=== PATIENT | female | born 1970 | race Caucasian/White ===

== ENCOUNTER → 2017-08-12 15:30 | Outpatient (CLI) | payer MEDICAID, SELFPAY ==
[2017-08-12 19:10] LABS: Basophils # 0.1 K/mm3 (0-0.2); Basophils % 0.6 % (0.1-2.0); Eosinophils # 0.1 K/mm3 (0.0-0.4); Eosinophils % 1.2 % (0.1-12.0); Hemoglobin 16.1 g/dL (12.2-16.2); Lymphocytes # 1.3 K/mm3 (0.7-4.5); Lymphocytes % 14.3 K/mm3 (10-50); Mean Corpuscular HGB Conc 32.8 g/dL (31.8-35.4); Mean Corpuscular Hemoglobin 32.6 pg (27.0-31.2); Mean Corpuscular Volume 99.3 fl (81-99); Mean Platelet Volume 8.9 fl (7.4-10.4); Monocytes # 0.5 K/mm3 (0.1-1.0); Monocytes % 5.2 % (1.7-9.3); Neutrophils # 7.2 K/mm3 (1.8-7.8); Neutrophils % 78.7 % (37.0-80.0); Platelet Count 236 K/mm3 (142-424); Red Blood Count 4.93 M/mm3 (4.20-5.40); Red Cell Distribution Width 12.7 % (11.5-17.5); White Blood Count 9.2 K/mm3 (4.8-10.8)
[2017-08-12 19:50] LABS: Alanine Aminotransferase 18 U/L (12-78); Albumin/Globulin Ratio 1.1 (1.1-1.8); Alkaline Phosphatase 95 U/L (46-116); Anion Gap 10.9 mEq/L (5-15); Aspartate Amino Transferase 16 U/L (15-37); Bilirubin,Total 0.4 mg/dL (0.2-1.0); Blood Urea Nitrogen 12 mg/dL (7-18); Calcium 9.6 mg/dL (8.5-10.1); Carbon Dioxide 34 mmol/L (21.0-32.0); Chloride 101 mmol/L (98-107); Estimated Glomerular Filt Rate 76 ml/min (>60); Free T4 (Free Thyroxine) 1.09 ng/dl (0.76-1.46); GFR (African American) 92 ML/MIN (>60); Globulin 3.8 gm/dl (1.3-3.2); Glucose 78 mg/dL (74-106); Potassium 3.9 mmoL/L (3.5-5.1); Sodium 142 mmol/L (136-145); Thyroid Stimulating Hormone 0.32 uIU/ml (0.358-3.740); Total Protein,Serum 7.8 gm/dL (6.4-8.2)
[2017-08-14 05:12] LABS: Hep A Ab, IgM Negative (Negative); Hepatitis B Core Antibody IgM Negative (Negative); Hepatitis B Surface Antigen Negative (Negative)
[2017-08-14 11:39] LABS: Hepatitis C Antibody >11.0 s/co ratio (0.0-0.9)
== END ==
PROVIDERS: Visit Provider Emergency Medicine
DX: R53.83 Other fatigue (principal)
CPT/HCPCS: 80053; 80074; 84439; 84443; 85025; 87522

== ENCOUNTER → 2018-06-08 12:50 | Outpatient (CLI) | payer MEDICAID, SELFPAY ==
[2018-06-08 12:56] LABS: Microscopic, Urine URINE MICROSCOPIC (MICROSCOPIC)
[2018-06-08 13:12] LABS: Appearance,Urine CLOUDY (Clear); Bilirubin,Urine Negative (Negative); Blood, Urine 2+ (Negative); Color,Urine YELLOW (Yellow); Glucose,Urine (UA) Negative (Negative); Ketones,Urine Negative (Negative); Leukocyte Esterase,Urine Negative (Negative); Nitrate,Urine Negative (Negative); PH,Urine 5.5 (5.0-8.5); Protein,Urine Negative (Negative); Specific Gravity, Urine >= 1.030 (1.005-1.030); Urobilinogen,Urine 0.2 EU/dl (0.2)
[2018-06-08 13:27] LABS: Bacteria,Urine Trace /lpf; RBC,Urine Occasional #/hpf (0-3)
[2018-06-08 14:08] LABS: Basophils # 0.1 K/mm3 (0-0.2); Basophils % 1.6 % (0.1-2.0); Eosinophils # 0.5 K/mm3 (0.0-0.4); Eosinophils % 8.7 % (0.1-12.0); Hematocrit 43.5 % (37.0-47.0); Lymphocytes # 1.6 K/mm3 (0.7-4.5); Lymphocytes % 31.6 % (10-50); Mean Corpuscular HGB Conc 32.2 g/dL (31.8-35.4); Mean Corpuscular Hemoglobin 30.9 pg (27.0-31.2); Mean Corpuscular Volume 95.7 fl (81-99); Monocytes # 0.2 K/mm3 (0.1-1.0); Monocytes % 4.3 % (1.7-9.3); Neutrophils # 2.8 K/mm3 (1.8-7.8); Neutrophils % 53.7 % (37.0-80.0); Platelet Count 203 K/mm3 (142-424); Red Blood Count 4.55 M/mm3 (4.20-5.40); White Blood Count 5.2 K/mm3 (4.8-10.8)
[2018-06-08 15:14] LABS: Alanine Aminotransferase 24 U/L (12-78); Albumin Level 3.4 gm/dL (3.4-5.0); Albumin/Globulin Ratio 0.9 (1.1-1.8); Alkaline Phosphatase 103 U/L (46-116); Anion Gap 14.7 mEq/L (5-15); Aspartate Amino Transferase 24 U/L (15-37); Bilirubin,Total 0.2 mg/dL (0.2-1.0); Blood Urea Nitrogen 9 mg/dL (7-18); Carbon Dioxide 31 mmol/L (21.0-32.0); Chloride 103 mmol/L (98-107); Chol/HDL Ratio 6.2 (1-3.5); Cholesterol 222 mg/dL (140-200); Creatinine,Serum 0.87 mg/dL (0.55-1.02); Estimated Glomerular Filt Rate 69 ml/min (>60); GFR (African American) 84 ML/MIN (>60); Globulin 3.7 gm/dl (1.3-3.2); Glucose 121 mg/dL (74-106); HDL Cholesterol 36 mg/dL (29-89); Potassium 3.7 mmoL/L (3.5-5.1); Sodium 145 mmol/L (136-145); Total Protein,Serum 7.1 gm/dL (6.4-8.2)
[2018-06-08 15:23] LABS: Ethyl Alcohol 0 mg/dL (0-99); Triglycerides 481 mg/dL (30-200)
[2018-06-09 09:32] LABS: HIV Screen 4th Generation wRfx Non Reactive (Non Reactive); Hep B Surface Ab, Qual Reactive (.); Hepatitis C Antibody >11.0 s/co ratio (0.0-0.9); Rapid Plasma Reagin Ab Titer Non Reactive (NonRea<1:1)
== END ==
PROVIDERS: Visit Provider Obstetrics & Gynecology
DX: F11.20 Opioid dependence, uncomplicated (principal)
CPT/HCPCS: 36415; 80053; 80061; 81001; 85025; 86592; 86703; 86706; 87086; 87380; G0432

== ENCOUNTER → 2018-06-29 14:42 | Outpatient (CLI) | payer MEDICAID, SELFPAY ==
[2018-06-29 15:28] LABS: Amphetamine/Metha Screen,Urine Negative ng/mL (<1000); Barbiturates Screen,Urine Negative ng/mL (<200); Benzodiazepines Screen,Urine Positive ng/mL (<200); Cannabinoid Screen,Urine Negative ng/mL (<50); Cocaine Screen,Urine Negative ng/mL (<300); Methadone Screen,Urine Negative ng/mL (<300); Opiate Screen,Urine Positive ng/mL (<300); Phencyclidine Screen,Urine Negative ng/mL (<25)
[2018-07-06 22:08] LABS: Codeine Negative (Cutoff=100); Hydrocodone Negative (Cutoff=100); Hydromorphone Negative (Cutoff=100); Morphine Positive (.)
[2018-07-07 07:46] LABS: Morphine Confirm 1409 ng/mL (Cutoff=100); Opiates Positive (.)
== END ==
PROVIDERS: Visit Provider Nurse Practitioner Family
DX: Z79.899 Other long term (current) drug therapy (principal)
CPT/HCPCS: 80305; 80361; G0480

== ENCOUNTER 2019-09-27 17:13 | Emergency (ER) | payer OTHER, SELFPAY ==
[2019-09-27 17:14] VITALS: BP 139/98; PULSE 78; RESP 19; TEMP 36.7; O2SAT 99; BMI 42.8
--- NOTE | 2019-09-27 17:29 | HMH.EDUTC ---
[facility] [place] Impression: Migraine Qualifiers: Migraine type: unspecified Status migrainosus presence: without status migrainosus Intractability: not intractable Qualified Code(s): G43.909 - Migraine, unspecified, not intractable, without status migrainosus Disposition: Home, Self-Care Condition on Discharge: Good Instructions: Migraine -- Adult, DI for Migraine Additional Instructions: Go home lay down and try to sleep off remainder of migraine headache *If you continue to have headaches make sure to follow up with Family doctor for further evaluation and treatment Return if needed Straight to ER if any life threatening symptoms Referrals: Amanda Hebert APRN [Primary Care Provider] - Time of Disposition: 17:49 Medical Decision Making - Italo Inquiry Pt receiving controlled substance: No Italo was queried for this patient: No Vital Signs: 09/27/19 17:14 Temperature 98.1 F Temperature Source Oral Pulse Rate [Radial] 78 Respiratory Rate 19 Blood Pressure [Right Arm] 139/98 H Blood Pressure Mean [Right Arm] 111 Blood Pressure Source [Right Arm] Automatic Cuff Blood Pressure Position [Right Arm] Sitting 02 Sat by Pulse Oximetry 99 Oxygen Delivery Method Room Air Orders (Tests/Meds): ED MEDICATIONS Discontinued Medications Generic Name Dose Route Start Last Admin Trade Name Freq PRN Reason Stop Dose Admin Ketorolac Tromethamine 60 mg 09/27/19 17:33 09/27/19 17:37 Toradol 60mg/2ml Vial IM 09/27/19 17:34 60 mg ONCE ONE Administration Ondansetron HCl 4 mg 09/27/19 17:33 09/27/19 17:38 Zofran 4mg Odt SL 09/27/19 17:34 4 mg ONCE ONE Administration [facility] [place] - General Stated complaint: ROLLINS Time Seen by Provider: 09/27/19 17:29 Mode of Arrival: Ambulatory Source of Information: Patient Limitations: No Limitations Description of Symptoms (Recalled from Triage Doc. by RN): migraine, vomiting x 3 days HEENT Symptoms (Recalled from RN notes): Yes Resp Symptoms (Recalled from RN notes): No Skin Symptoms (Recalled from RN notes): No MS Symptoms (Recalled from RN notes): Yes Functional Status (Recalled from RN notes): wnl - History of Present Illness Provider Complaint: Patient state that she has a history of migraine headaches States that she has had a migraine for about 3 days States that she was going to go see family doctor but they told her to come to [facility] for Toradol injection for migraine States that this headache is like ones that she has had before and Toradol helped - Related Data Home Medications Medication Instructions Recorded Confirmed Buprenorphine HCl/Naloxone HCl 2.5 each SL DAILY 01/23/19 01/23/19 [Suboxone 8 mg-2 mg Sl Film] Trazodone HCl 100 mg PO DAILY 06/21/19 09/27/19 buprenorphine 8 mg-naloxone 2 mg 1 tab SUBLINGUAL DAILY 09/27/19 09/27/19 sublingual tablet duloxetine 30 mg capsule,delayed 30 mg PO DAILY 09/27/19 09/27/19 release sprinkle duloxetine 60 mg capsule,delayed 60 mg PO DAILY 09/27/19 09/27/19 release sprinkle quetiapine 50 mg tablet 50 mg PO BID tab 09/27/19 09/27/19 Previous Rx's Medication Instructions Recorded buspirone 5 mg tablet 5 mg PO BID 30 Days #60 tab 01/31/19 amlodipine 5 mg tablet 5 mg PO DAILY #90 tab 03/14/19 risperidone 1 mg tablet 1 mg PO DAILY #90 tab 03/14/19 Allergies Allergy/AdvReac Type Severity Reaction Status Date / Time codeine [CODEINE] Allergy Unknown SHORTNESS Verified 09/27/19 10:20 OF BREATH Penicillins [PENICILLINS] Allergy Unknown SHORTNESS Verified 09/27/19 10:20 OF BREATH From CHERRIES (FOOD/DRUG) Allergy Unknown SHORTNESS Uncoded 09/27/19 10:20 OF BREATH - Worker's Comp Is this a Worker's Comp case?: No [facility] History - Hepatitis A Screen Drug use history?: No High risk sexual behaviors?: No History of sexually transmitted infection?: No Currently employed?: No Childcare worker?: No Do you have indoor plumbing?: Yes Do you have electric
[2019-09-27 17:58] VITALS: BP 139/98; PULSE 78; RESP 19; TEMP 36.7; O2SAT 99
== END 2019-09-27 17:59 | disposition home or self-care (01) ==
PROVIDERS: Emergency Provider Nurse Practitioner; PCP Nurse Practitioner Family
DX: G43.909 Migraine, unspecified, not intractable, without status migrainosus (principal); F41.8 Other specified anxiety disorders; F17.210 Nicotine dependence, cigarettes, uncomplicated; Z88.0 Allergy status to penicillin; Z88.5 Allergy status to narcotic agent; F15.11 Other stimulant abuse, in remission
CPT/HCPCS: 96372; 99201

== ENCOUNTER 2020-02-24 12:08 | Emergency (ER) | payer OTHER, SELFPAY ==
[2020-02-24 12:40] VITALS: BP 127/101; PULSE 91; RESP 17; O2SAT 96; BMI 41.3
--- NOTE | 2020-02-24 12:59 | HMH.EDUTC ---
[facility] – [place] Dis[place] Clinical Impression: Gastroenteritis Disposition: Home, Self-Care Condition on Discharge: Good Instructions: DI for Viral Gastroenteritis -- Adult Additional Instructions: Drink plenty of fluids. Take tylenol or ibuprofen for pain or fever. Take the medications as directed. Follow up with your regular doctor. GO TO THE ER FOR ANY WORSENING SYMPTOMS Prescriptions: Ondansetron [Zofran 4mg ODT] 4 mg PO Q8HP PRN #20 tab.rapdis PRN Reason: Nausea Transmission Status: Received by [facility] Referrals: Amanda Hebert APRN [Primary Care Provider] - Forms: Work/School Release Time of Disposition: 13:20 Medical Decision Making - Medical Records Medical records reviewed: No: I reviewed the patient's medical records. - Italo Inquiry Pt receiving controlled substance: No Vital Signs: 02/24/20 12:40 02/24/20 13:38 Temperature 98.1 F Temperature Source Oral Pulse Rate 91 H Pulse Rate [Radial] 91 H Respiratory Rate 17 17 Blood Pressure 127/101 H Blood Pressure [Right Arm] 127/101 H Blood Pressure Mean [Right Arm] 109 Blood Pressure Source Automatic Cuff Blood Pressure Source [Right Arm] Automatic Cuff Blood Pressure Position Sitting Blood Pressure Position [Right Arm] Sitting 02 Sat by Pulse Oximetry 96 Oxygen Delivery Method Room Air Room Air Orders (Tests/Meds): ED MEDICATIONS Discontinued Medications Generic Name Dose Route Start Last Admin Trade Name Freq PRN Reason Stop Dose Admin Promethazine HCl 25 mg 02/24/20 13:05 02/24/20 13:09 Promethazine Hcl 25mg/Ml 1ml Vial IM 02/24/20 13:06 25 mg ONCE ONE Administration [facility] [place] HPI - General Stated complaint: Vomiting, diarrhea Time Seen by Provider: 02/24/20 12:59 Mode of Arrival: Ambulatory Source of Information: Patient Limitations: No Limitations Description of Symptoms (Recalled from Triage Doc. by RN): vomiting, diarrhea, low grade temp HEENT Symptoms (Recalled from RN notes): No Resp Symptoms (Recalled from RN notes): No Skin Symptoms (Recalled from RN notes): No MS Symptoms (Recalled from RN notes): No Functional Status (Recalled from RN notes): wnl - History of Present Illness Provider Complaint: She c/o n/v/d since last night. - Related Data Home Medications Medication Instructions Recorded Confirmed Buprenorphine HCl/Naloxone HCl 2.5 each SL DAILY 01/23/19 01/23/19 [Suboxone 8 mg-2 mg Sl Film] Previous Rx's Medication Instructions Recorded amlodipine 5 mg tablet 5 mg PO DAILY #90 tab 03/14/19 buspirone 5 mg tablet 5 mg PO BID 30 Days #60 tab 12/28/19 cariprazine 1.5 mg capsule 1.5 mg PO DAILY #30 cap 12/28/19 duloxetine 60 mg capsule,delayed 60 mg PO DAILY #30 cap 12/28/19 release hydroxyzine pamoate 25 mg capsule 25 mg PO .COMPLEX PRN #60 cap 12/28/19 vilazodone 20 mg tablet 20 mg PO DAILY 30 Days #30 tab 02/14/20 Ondansetron [Zofran 4mg ODT] 4 mg PO Q8HP PRN #20 tab.rapdis 02/24/20 Allergies Allergy/AdvReac Type Severity Reaction Status Date / Time codeine [CODEINE] Allergy Unknown SHORTNESS Verified 09/27/19 10:20 OF BREATH Penicillins [PENICILLINS] Allergy Unknown SHORTNESS Verified 09/27/19 10:20 OF BREATH From CHERRIES (FOOD/DRUG) Allergy Unknown SHORTNESS Uncoded 09/27/19 10:20 OF BREATH - Worker's Comp Is this a Worker's Comp case?: No [facility] History - Hepatitis A Screen Drug use history?: No High risk sexual behaviors?: No History of sexually transmitted infection?: No Currently employed?: No Childcare worker?: No Do you have indoor plumbing?: Yes Do you have electricity?: Yes Attestation statement:: This patient has been screened for Hepatitis A risk factors. I have reviewed the patient's past medical history: Yes Medical History: Reports:: Anxiety, Depression, Hypertension Other Surgeries: Yes: Amputation: No Fractures: Yes - Social History Smoking Status: Current e
[2020-02-24 13:38] VITALS: BP 127/101; PULSE 91; RESP 17; TEMP 36.7; O2SAT 96
== END 2020-02-24 13:39 | disposition home or self-care (01) ==
PROVIDERS: Emergency Provider Nurse Practitioner Family; PCP Nurse Practitioner Family
DX: K52.9 Noninfective gastroenteritis and colitis, unspecified (principal); F41.8 Other specified anxiety disorders; F17.210 Nicotine dependence, cigarettes, uncomplicated
CPT/HCPCS: 96372; 99201

== ENCOUNTER 2020-07-08 14:29 | Emergency (ER) | payer OTHER, SELFPAY ==
[2020-07-08] VITALS (12 sets, daily range): BP systolic 103–138; BP diastolic 73–98; PULSE 81–90; RESP 12–16; TEMP 36.6; O2SAT 90–100; BMI 44.8
--- NOTE | 2020-07-08 14:18 | ECG_ITS ---
APPROVED REPORT Exam: Resting ECG HR:81 bpm ECG Measurements Heart Rate 81 AXES WA 188 P 73 QRSd 82 QRS 47 QT 416 T 28 QTc 483 Conclusion Normal sinus rhythm Prolonged QT Abnormal ECG Electronically signed by : Brodie Holliday, 07/08/2020 17:32:03
--- NOTE | 2020-07-08 14:30 | HMH.EDGENADL ---
ED Disposition Clinical Impression: Heroin overdose Qualifiers: Encounter type: initial encounter Injury intent: accidental or unintentional Qualified Code(s): T40.1X1A - Poisoning by heroin, accidental (unintentional), initial encounter Disposition: Home, Self-Care Condition on Discharge: Good Instructions: DI for Drug Overdose in Adults Additional Instructions: Do not take any diazepam until tomorrow. Do not take any Suboxone until tomorrow. Do not drink any alcohol today. Return to the emergency department with any worsening of condition. Referrals: Ricki Finney MD [Primary Care Provider] - - Critical Care Critical Care Time: No Attestation: On , the high probability of a clinically significant, sudden or life threatening deterioration of the following system(s) required my full and direct attention, intervention and personal management. The time I documented below is in addition to time spent performing reported procedures but includes the following listed in this critical care notation. Medical Decision Making - Italo Inquiry Pt receiving controlled substance: No Vital Signs: 07/08/20 14:29 07/08/20 14:51 07/08/20 14:57 Temperature 97.8 F Temperature Source Oral Pulse Rate [Apical] 81 85 Respiratory Rate 12 Blood Pressure [Left Arm] 108/79 L Blood Pressure Mean [Left Arm] 88 Blood Pressure Source [Left Arm] Automatic Cuff Automatic Cuff Blood Pressure Position [Left Arm] Sitting Sitting 02 Sat by Pulse Oximetry 91 L 100 96 Oxygen Delivery Method Room Air Nasal Cannula Nasal Cannula Oxygen Flow Rate (LPM) 2 2 07/08/20 15:00 07/08/20 15:30 07/08/20 16:00 Temperature Temperature Source Pulse Rate [Apical] 85 85 90 Respiratory Rate Blood Pressure [Left Arm] 103/80 L 104/79 L 107/73 L Blood Pressure Mean [Left Arm] 87 87 84 Blood Pressure Source [Left Arm] Automatic Cuff Automatic Cuff Automatic Cuff Blood Pressure Position [Left Arm] Sitting Sitting Sitting 02 Sat by Pulse Oximetry 100 96 96 Oxygen Delivery Method Room Air Room Air Nasal Cannula Oxygen Flow Rate (LPM) 07/08/20 16:30 07/08/20 17:37 07/08/20 18:18 Temperature Temperature Source Pulse Rate [Apical] 86 88 89 Respiratory Rate Blood Pressure [Left Arm] 130/91 H 128/98 H 134/77 Blood Pressure Mean [Left Arm] 104 108 96 Blood Pressure Source [Left Arm] Automatic Cuff Automatic Cuff Automatic Cuff Blood Pressure Position [Left Arm] Sitting Sitting Sitting 02 Sat by Pulse Oximetry 90 L 97 94 L Oxygen Delivery Method Room Air Nasal Cannula Room Air Oxygen Flow Rate (LPM) 2 07/08/20 18:47 Temperature Temperature Source Pulse Rate [Apical] 84 Respiratory Rate Blood Pressure [Left Arm] 138/92 H Blood Pressure Mean [Left Arm] 107 Blood Pressure Source [Left Arm] Automatic Cuff Blood Pressure Position [Left Arm] Sitting 02 Sat by Pulse Oximetry 91 L Oxygen Delivery Method Room Air Oxygen Flow Rate (LPM) - Lab Data Lab Results 07/08/20 14:55: WBC 8.3, RBC 4.61, Hgb 14.5, Hct 43.7, MCV 94.8, MCH 31.5 H, MCHC 33.3, RDW 13.4, Plt Count 226, MPV 7.8, Neut % (Auto) 75.5, Lymph % (Auto) 17.5, Charlton % (Auto) 3.6, Eos % (Auto) 2.7, Baso % (Auto) 0.7, Neut # (Auto) 6.2, Lymph # (Auto) 1.5, Charlton # (Auto) 0.3, Eos # (Auto) 0.2, Baso # (Auto) 0.1 07/08/20 14:55: Sodium 144, Potassium 4.7, Chloride 105, Carbon Dioxide 35 H, Anion Gap 8.7, BUN 11, Creatinine 0.90, Estimated Creat Clear 61, Estimated GFR 66, Est GFR ( Amer) 80, Glucose 118 H, Calcium 9.7, Total Bilirubin 0.4, AST 51 H, ALT 55, Alkaline Phosphatase 111, Total Protein 8.1, Albumin 4.4, Globulin 3.7 H, Albumin/Globulin Ratio 1.2, Salicylates < 1.0 L, Acetaminophen < 10 L 07/08/20 14:55: Plasma/Serum Alcohol < 10 07/08/20 17:45: Urine Opiates Screen Negative, Urine Methadone Screen Negative, Ur Barbituates Screen Negative, Ur Phencyclidine Scrn Negative, Ur Amphetamines Screen Negative, U Benzodiazepines Scrn Positive H, Urine Cocaine Screen
--- NOTE | 2020-07-08 14:38 | XR_ITS ---
PROCEDURE: XR CHEST PORTABLE CLINICAL HISTORY: Chest Pain COMPARISON: CR CXR2 CHEST-AP VIEW ONLY from 12/05/[address] ANGIO CHEST from 01/23/2019 CR XR CHEST PORTABLE from 01/23/2019 FINDINGS: The lung zuniga are well expanded and appear clear of infiltrate. There is mild or borderline cardiomegaly however there is no pulmonary congestion and there is no pleural fluid. There monitor lines overlying the chest. There are calcified left hilar nodes. There is a metallic surgical anchor diametaphyseal zone right humerus. IMPRESSION: Borderline cardiomegaly, no acute chest pathology noted Dictated by: Dr. David Borges MD 07/08/2020 19:04 Dr. David Borges MD in [place] 07/08/2020 19:04
--- NOTE | 2020-07-08 14:40 | CT_ITS ---
PROCEDURE: CT CHEST WO CON CLINICAL INDICATION: cpr, chest pain, r/o sternal fx COMPARISON: CT CT ANGIO CHEST from 01/23/2019 TECHNIQUE: Axial images obtained with sagittal and coronal reformats. All CT scans at the facility use one or more dose reduction, viz: automated exposure control, ma/kV adjustment per patient size (including targeted exams where dose is matched to indication, i.e. head), or iterative reconstruction technique. FINDINGS: HEART AND MEDIASTINAL STRUCTURES: There is mild or borderline generalized cardiomegaly with aortic tortuosity.1 there is no pericardial effusion.. LUNGS AND PLEURAL SPACES: No definite pneumonic infiltrate is seen, there is minimal bilateral basilar atelectasis in the posterior gutters. There is no pleural fluid. There is no pneumothorax or pneumomediastinum identified. BONY STRUCTURES: Minor multilevel degenerate changes are seen in the thoracic spine. The sternum appears intact with no evidence of acute fracture. UPPER ABDOMEN: There is a exophytic somewhat lobulated mass arising from the upper pole right kidney not completely evaluated on the limited imaging of the upper abdomen. Recommend the patient be scheduled for either ultrasound of the kidneys and or follow-up CT scan abdomen pelvis with IV contrast for additional evaluation. ADDITIONAL FINDINGS: No other significant abnormalities. IMPRESSION: Borderline cardiomegaly, no definite pneumonic infiltrate seen and no sternal fracture identified Dictated by: Dr. David Borges MD 07/08/2020 19:12 Dr. David Borges MD in [place] 07/08/2020 19:12
--- NOTE | 2020-07-08 14:56 | PC.NURSE ---
pt to CT
[2020-07-08 15:06] LABS: Basophils # 0.1 K/mm3 (0-0.2); Basophils % 0.7 % (0.1-2.0); Eosinophils # 0.2 K/mm3 (0.0-0.4); Eosinophils % 2.7 % (0.1-12.0); Hematocrit 43.7 % (37.0-47.0); Hemoglobin 14.5 g/dL (12.2-16.2); Lymphocytes # 1.5 K/mm3 (0.7-4.5); Lymphocytes % 17.5 % (10-50); Mean Corpuscular HGB Conc 33.3 g/dL (31.8-35.4); Mean Corpuscular Hemoglobin 31.5 pg (27.0-31.2); Mean Corpuscular Volume 94.8 fl (81-99); Mean Platelet Volume 7.8 fl (7.4-10.4); Monocytes # 0.3 K/mm3 (0.1-1.0); Monocytes % 3.6 % (1.7-9.3); Neutrophils # 6.2 K/mm3 (1.8-7.8); Neutrophils % 75.5 % (37.0-80.0); Platelet Count 226 K/mm3 (142-424); Red Blood Count 4.61 M/mm3 (4.20-5.40); Red Cell Distribution Width 13.4 % (11.5-17.5); White Blood Count 8.3 K/mm3 (4.8-10.8)
[2020-07-08 15:11] LABS: Chloride 105 mmol/L (98-107); Sodium 144 mmol/L (136-145)
[2020-07-08 15:12] LABS: Potassium 4.7 mmoL/L (3.5-5.1)
[2020-07-08 15:14] LABS: Alanine Aminotransferase 55 U/L (12-78); Albumin Level 4.4 g/dl (3.5-5.0); Albumin/Globulin Ratio 1.2 (1.1-1.8); Alkaline Phosphatase 111 U/L (38-126); Anion Gap 8.7 mEq/L (5-15); Aspartate Amino Transferase 51 U/L (14-36); Bilirubin,Total 0.4 mg/dl (0.2-1.3); Blood Urea Nitrogen 11 mg/dl (7-17); Calcium 9.7 mg/dl (8.4-10.2); Carbon Dioxide 35 mmol/L (22.0-30.0); Creatinine Clearance Estimated 61 mL/min (50-200); Estimated Glomerular Filt Rate 66 ml/min (>60); GFR (African American) 80 ML/MIN (>60); Globulin 3.7 g/dL (1.3-3.2); Glucose 118 mg/dl (74-100); Total Protein,Serum 8.1 g/dl (6.3-8.2)
[2020-07-08 15:16] LABS: Acetaminophen < 10 ug/ml (10-30); Ethyl Alcohol < 10 mg/dl (0-10); Salicylate < 1.0 mg/dL (2.0-20.0)
--- NOTE | 2020-07-08 16:35 | PC.NURSE ---
pt oxygen levels drops when pt falls asleep, ER MD notified, states to place pt back on 2L per and we will continue to monitor pt for at least a couple of hours.
[2020-07-08 18:03] LABS: Amphetamine/Metha Screen,Urine Negative ng/ml (<1000); Barbiturates Screen,Urine Negative ng/ml (<200)
[2020-07-08 18:04] LABS: Benzodiazepines Screen,Urine Positive ng/ml (<200); Cannabinoid Screen,Urine Negative ng/ml (<50)
[2020-07-08 18:05] LABS: Cocaine Screen,Urine Negative ng/ml (<300)
[2020-07-08 18:06] LABS: Methadone Screen,Urine Negative ng/ml (<300); Opiate Screen,Urine Negative ng/ml (<300)
--- NOTE | 2020-07-08 18:06 | PC.NURSE ---
pt more alert at this time.
[2020-07-08 18:07] LABS: Phencyclidine Screen,Urine Negative ng/ml (<25)
== END 2020-07-08 19:10 | disposition home or self-care (01) ==
PROVIDERS: Emergency Provider Emergency Medicine; PCP Family Medicine
DX: T40.1X1A Poisoning by heroin, accidental (unintentional), initial encounter (principal); F41.8 Other specified anxiety disorders; I10 Essential (primary) hypertension; Z79.899 Other long term (current) drug therapy; F17.210 Nicotine dependence, cigarettes, uncomplicated; Z88.0 Allergy status to penicillin; Z88.5 Allergy status to narcotic agent
CPT/HCPCS: 71045; 71250; 80053; 80305; 80329; 85025; 93005; 96374; 96375; 99284; J2310

== ENCOUNTER 2020-08-18 19:39 | Emergency (ER) | payer OTHER, SELFPAY ==
[2020-08-18 20:04] VITALS: BP 152/102; PULSE 83; RESP 14; TEMP 37; O2SAT 99; BMI 44.6
--- NOTE | 2020-08-18 20:16 | HMH.EDUTC ---
[facility] – [place], [place] Disposition Clinical Impression: Migraine Qualifiers: Migraine type: without aura Status migrainosus presence: without status migrainosus Intractability: not intractable Qualified Code(s): G43.009 - Migraine without aura, not intractable, without status migrainosus Disposition: Home, Self-Care Condition on Discharge: Good Instructions: Migraine -- Adult, DI for Migraine Additional Instructions: if symptoms worsen or do not improve return or be seen in ed follow up with pcp Referrals: Ricki Finney MD [Primary Care Provider] - Time of Disposition: 20:28 Medical Decision Making - Italo Inquiry Pt receiving controlled substance: No Vital Signs: 08/18/20 20:04 Temperature 98.6 F Temperature Source Oral Pulse Rate [Right] 83 Respiratory Rate 14 Blood Pressure [Right Arm] 152/102 H Blood Pressure Mean [Right Arm] 118 Blood Pressure Source [Right Arm] Automatic Cuff Blood Pressure Position [Right Arm] Sitting 02 Sat by Pulse Oximetry 99 Oxygen Delivery Method Room Air [facility] [place], [place] HPI - General Chief complaint: [facility] Stated complaint: migraine,vomiting Time Seen by Provider: 08/18/20 20:16 Mode of Arrival: Ambulatory Source of Information: Patient Limitations: No Limitations Description of Symptoms (Recalled from Triage Doc. by RN): pt states she has had a migraine and N/V for three days. pt states she has had migraines since she was 12, and normally gets torodol and phenergran injections on day three if she can't get rid of them. HEENT Symptoms (Recalled from RN notes): Yes (migraine) Resp Symptoms (Recalled from RN notes): No Skin Symptoms (Recalled from RN notes): No MS Symptoms (Recalled from RN notes): No Functional Status (Recalled from RN notes): na - Related Data Home Medications Medication Instructions Recorded Confirmed Buprenorphine HCl/Naloxone HCl 2.5 each SL DAILY 01/23/19 01/23/19 [Suboxone 8 mg-2 mg Sl Film] Previous Rx's Medication Instructions Recorded amlodipine 5 mg tablet 5 mg PO DAILY #90 tab 03/14/19 Ondansetron [Zofran 4mg ODT] 4 mg PO Q8HP PRN #20 tab.rapdis 02/24/20 propranolol 10 mg tablet 10 mg PO TID PRN #90 tab 07/05/20 buspirone 5 mg tablet 5 mg PO BID #60 tab 07/23/20 cariprazine 3 mg capsule 3 mg PO DAILY #30 cap 07/23/20 desvenlafaxine succinate 50 mg 50 mg PO DAILY #30 tab 07/23/20 tablet,extended release 24 hr duloxetine 30 mg capsule,delayed 30 mg PO DAILY #14 cap 07/23/20 release quetiapine 50 mg tablet 50 mg PO QHS #30 tab 07/23/20 vilazodone 40 mg tablet 40 mg PO DAILY #30 tab 07/23/20 hydroxyzine pamoate 25 mg capsule 25 mg PO TID PRN #90 cap 08/13/20 Allergies Allergy/AdvReac Type Severity Reaction Status Date / Time codeine [CODEINE] Allergy Unknown SHORTNESS Verified 08/18/20 20:03 OF BREATH Penicillins [PENICILLINS] Allergy Unknown SHORTNESS Verified 08/18/20 20:03 OF BREATH From CHERRIES (FOOD/DRUG) Allergy Unknown SHORTNESS Uncoded 09/27/19 10:20 OF BREATH - Worker's Comp Is this a Worker's Comp case?: No [facility] History - Hepatitis A Screen Drug use history?: No High risk sexual behaviors?: No History of sexually transmitted infection?: No Currently employed?: No Childcare worker?: No Do you have indoor plumbing?: Yes Do you have electricity?: Yes Attestation statement:: This patient has been screened for Hepatitis A risk factors. I have reviewed the patient's past medical history: Yes Medical History: Reports:: Anxiety, Depression, Hypertension Other Surgeries: Yes: Amputation: No Fractures: Yes - Social History Smoking Status: Current every day smoker Tobacco Type: cigarettes # Packs/Day (cigarettes): 1 Alcohol Intake: never Substance Use Type: denies use, crack/cocaine, heroin, IV drugs (she has had the hepatitis and HIV testing; all negative) Occupational Status: employed Comment: -see above. -she is currently in a suboxone clinic - Psychiatric History Pschychi
[2020-08-18 20:34] VITALS: BP 149/98; PULSE 87; RESP 16; TEMP 36.6
== END 2020-08-18 20:40 | disposition home or self-care (01) ==
PROVIDERS: Emergency Provider Nurse Practitioner Family; PCP Family Medicine
DX: G43.009 Migraine without aura, not intractable, without status migrainosus (principal); F41.8 Other specified anxiety disorders; F17.210 Nicotine dependence, cigarettes, uncomplicated; Z79.899 Other long term (current) drug therapy
CPT/HCPCS: 96372; 99202; G0463

== ENCOUNTER 2020-08-21 17:16 | Emergency (ER) | payer OTHER, SELFPAY ==
[2020-08-21 17:26] VITALS: BP 163/109; PULSE 87; RESP 16; TEMP 36.2; O2SAT 96; BMI 44.8
--- NOTE | 2020-08-21 17:40 | HMH.EDUTC ---
[facility] [place] Disposition Clinical Impression: Migraine Qualifiers: Migraine type: unspecified Status migrainosus presence: without status migrainosus Intractability: not intractable Qualified Code(s): G43.909 - Migraine, unspecified, not intractable, without status migrainosus Disposition: Home, Self-Care Condition on Discharge: Good Instructions: DI for Migraine Additional Instructions: Drink plenty of fluids. Take the ibuprofen that was prescribed. The promethazine will make you drowsy, so don't drive or operate heavy machinery after taking it. Take the medications as directed. Follow up with your regular doctor. GO TO THE ER FOR ANY WORSENING SYMPTOMS Prescriptions: Ibuprofen [Ibuprofen 800mg Tablet] 800 mg PO Q8HP PRN #30 tab PRN Reason: Moderate Pain Transmission Status: Received by [facility] Promethazine HCl [Phenergan 25mg tab] 25 mg PO Q6H PRN #12 tab PRN Reason: Nausea And Vomiting Transmission Status: Received by [facility] Referrals: Ricki Finney MD [Primary Care Provider] - Time of Disposition: 18:09 Medical Decision Making - Medical Records Medical records reviewed: No: I reviewed the patient's medical records. - Italo Inquiry Pt receiving controlled substance: No Vital Signs: 08/21/20 17:26 08/21/20 17:58 Temperature 97.2 F L 98 F Temperature Source Tympanic Pulse Rate 85 Pulse Rate [Right] 87 Respiratory Rate 16 16 Blood Pressure 152/99 H Blood Pressure [Right Arm] 163/109 H Blood Pressure Mean [Right Arm] 127 02 Sat by Pulse Oximetry 96 Orders (Tests/Meds): ED MEDICATIONS Discontinued Medications Generic Name Dose Route Start Last Admin Trade Name Freq PRN Reason Stop Dose Admin Ketorolac Tromethamine 60 mg 08/21/20 17:44 08/21/20 17:54 Ketorolac 60mg/2ml Vial IM 08/21/20 17:45 60 mg ONCE ONE Administration Promethazine HCl 12.5 mg 08/21/20 17:45 08/21/20 17:53 Promethazine Hcl 25mg/Ml 1ml Vial IM 08/21/20 17:46 12.5 mg ONCE ONE Administration [facility] [place] HPI - General Stated complaint: migraine Time Seen by Provider: 08/21/20 17:40 Mode of Arrival: Ambulatory Source of Information: Patient Limitations: No Limitations Description of Symptoms (Recalled from Triage Doc. by RN): pt states she has had a migraine for two days. she has been having N/V and is seeing spots. pain is at the top of her forehead and its a 9/10. HEENT Symptoms (Recalled from RN notes): Yes (migraine with visual disturbances) Resp Symptoms (Recalled from RN notes): No Skin Symptoms (Recalled from RN notes): No MS Symptoms (Recalled from RN notes): No Functional Status (Recalled from RN notes): na - History of Present Illness Provider Complaint: She c/o migraine headache since yesterday evening. She states that she sometimes has migraines and she has to come in here to get a steroid shot. - Related Data Home Medications Medication Instructions Recorded Confirmed Buprenorphine HCl/Naloxone HCl 2.5 each SL DAILY 01/23/19 01/23/19 [Suboxone 8 mg-2 mg Sl Film] Previous Rx's Medication Instructions Recorded amlodipine 5 mg tablet 5 mg PO DAILY #90 tab 03/14/19 Ondansetron [Zofran 4mg ODT] 4 mg PO Q8HP PRN #20 tab.rapdis 02/24/20 propranolol 10 mg tablet 10 mg PO TID PRN #90 tab 07/05/20 buspirone 5 mg tablet 5 mg PO BID #60 tab 07/23/20 cariprazine 3 mg capsule 3 mg PO DAILY #30 cap 07/23/20 desvenlafaxine succinate 50 mg 50 mg PO DAILY #30 tab 07/23/20 tablet,extended release 24 hr duloxetine 30 mg capsule,delayed 30 mg PO DAILY #14 cap 07/23/20 release quetiapine 50 mg tablet 50 mg PO QHS #30 tab 07/23/20 vilazodone 40 mg tablet 40 mg PO DAILY #30 tab 07/23/20 hydroxyzine pamoate 25 mg capsule 25 mg PO TID PRN #90 cap 08/13/20 Ibuprofen [Ibuprofen 800mg 800 mg PO Q8HP PRN #30 tab 08/21/20 Tablet] Promethazine HCl [Phenergan 25mg 25 mg PO Q6H PRN #12 tab 08/21/20 tab] A
[2020-08-21 17:58] VITALS: BP 152/99; PULSE 85; RESP 16; TEMP 36.6
== END 2020-08-21 18:30 | disposition home or self-care (01) ==
PROVIDERS: Emergency Provider Nurse Practitioner Family; PCP Family Medicine
DX: G43.909 Migraine, unspecified, not intractable, without status migrainosus (principal); F41.8 Other specified anxiety disorders; F17.210 Nicotine dependence, cigarettes, uncomplicated; Z79.899 Other long term (current) drug therapy; Z88.0 Allergy status to penicillin; Z88.5 Allergy status to narcotic agent
CPT/HCPCS: 96372; 99202; G0463

== ENCOUNTER 2021-02-11 13:07 | Emergency (ER) | payer OTHER, SELFPAY ==
[2021-02-11 13:40] VITALS: BP 135/89; PULSE 98; RESP 18; TEMP 36.8; O2SAT 95; BMI 43.9
--- NOTE | 2021-02-11 14:20 | HMH.EDUTC ---
[facility] [place] Clinical Impression: Migraine Qualifiers: Migraine type: unspecified Status migrainosus presence: without status migrainosus Intractability: not intractable Qualified Code(s): G43.909 - Migraine, unspecified, not intractable, without status migrainosus Disposition: Home, Self-Care Condition on Discharge: Good Instructions: Migraine -- Adult, DI for Migraine Additional Instructions: Go home lay down and sleep off remainder of Migraine Headache Follow up with your Family Doctor as scheduled tomorrow Return if needed Straight to ER if any life threatening symptoms Referrals: Ricki Finney MD [Primary Care Provider] - As needed Time of Disposition: 14:33 Medical Decision Making - Italo Inquiry Pt receiving controlled substance: No Italo was queried for this patient: No Vital Signs: 02/11/21 13:40 02/11/21 14:39 Temperature 98.2 F 98.2 F Temperature Source Oral Pulse Rate 98 H Pulse Rate [Right Brachial] 98 H Respiratory Rate 18 18 Blood Pressure 135/89 Blood Pressure [Right Arm] 135/89 Blood Pressure Mean [Right Arm] 104 Blood Pressure Source [Right Arm] Automatic Cuff Blood Pressure Position [Right Arm] Sitting 02 Sat by Pulse Oximetry 95 Oxygen Delivery Method Room Air Orders (Tests/Meds): ED MEDICATIONS Discontinued Medications Generic Name Dose Route Start Last Admin Trade Name Freq PRN Reason Stop Dose Admin Ketorolac Tromethamine 30 mg 02/11/21 14:31 02/11/21 14:38 Ketorolac 60mg/2ml Vial IM 02/11/21 14:32 30 mg ONCE ONE Administration Promethazine HCl 12.5 mg 02/11/21 14:31 02/11/21 14:38 Promethazine Hcl 25mg/Ml 1ml Vial IM 02/11/21 14:32 12.5 mg ONCE ONE Administration Sodium Chloride 25 ml 02/11/21 14:31 02/11/21 14:39 Sodium Chloride 0.9% 25ml Bag IV 02/11/21 14:32 Not Given ONCE ONE Medical Decision Narrative: Patient reports that she has taken both Toradol and Phenergan in the past without complications or reactions [facility] [place] - General Stated complaint: Body aches, sore throat, headace Time Seen by Provider: 02/11/21 14:20 Mode of Arrival: Ambulatory Source of Information: Patient Limitations: No Limitations Description of Symptoms (Recalled from Triage Doc. by RN): PATIENT C/O EAR ACHE, HEADACHE, AND VOMITING. EXPOSED TO COVID 3 DAYS AGO HEENT Symptoms (Recalled from RN notes): No Resp Symptoms (Recalled from RN notes): No Skin Symptoms (Recalled from RN notes): No MS Symptoms (Recalled from RN notes): No Functional Status (Recalled from RN notes): WNL - History of Present Illness Provider Complaint: Patient states that she has a history of Migraine headaches States that she has been having a migraine for 3 days States that she called her PCP and they told her to come to the [facility] to get injections due to vomiting due to the migraine States that this is like other migraines she has had in the past - Related Data Home Medications Medication Instructions Recorded Confirmed Buprenorphine HCl/Naloxone HCl 2.5 each SL DAILY 01/23/19 01/23/19 [Suboxone 8 mg-2 mg Sl Film] Previous Rx's Medication Instructions Recorded amlodipine 5 mg tablet 5 mg PO DAILY #90 tab 03/14/19 Ondansetron [Zofran 4mg ODT] 4 mg PO Q8HP PRN #20 tab.rapdis 02/24/20 propranolol 10 mg tablet 10 mg PO TID PRN #90 tab 07/05/20 Ibuprofen [Ibuprofen 800mg 800 mg PO Q8HP PRN #30 tab 08/21/20 Tablet] Promethazine HCl [Phenergan 25mg 25 mg PO Q6H PRN #12 tab 08/21/20 tab] buspirone 5 mg tablet 5 mg PO BID #60 tab 01/24/21 cariprazine 4.5 mg capsule 4.5 mg PO DAILY #30 cap 01/24/21 desvenlafaxine succinate 50 mg 50 mg PO DAILY #30 tab 01/24/21 tablet,extended release 24 hr hydroxyzine pamoate 25 mg capsule 25 mg PO TID PRN #90 cap 01/24/21 quetiapine 100 mg tablet 100 mg PO QHS #30 tab 01/24/21 vilazodone 40 mg tablet 40 mg PO DAILY #30 tab 01/24/21 Allergies Allergy/AdvReac Type Severity Reaction Status Date / T
[2021-02-11 14:39] VITALS: BP 135/89; PULSE 98; RESP 18; TEMP 36.8; O2SAT 95
== END 2021-02-11 14:45 | disposition home or self-care (01) ==
PROVIDERS: Emergency Provider Nurse Practitioner; PCP Family Medicine
DX: G43.909 Migraine, unspecified, not intractable, without status migrainosus (principal); F41.8 Other specified anxiety disorders; F17.210 Nicotine dependence, cigarettes, uncomplicated; Z88.0 Allergy status to penicillin; Z88.5 Allergy status to narcotic agent; Z79.899 Other long term (current) drug therapy; Z20.822 Contact with and (suspected) exposure to COVID-19
CPT/HCPCS: 96372; 99202; C9803; G0463; U0003; U0005

== ENCOUNTER 2021-06-18 13:30 | Emergency (ER) | payer OTHER, SELFPAY ==
[2021-06-18 14:20] VITALS: BP 141/90; PULSE 82; RESP 18; TEMP 37; O2SAT 98; BMI 44.1
--- NOTE | 2021-06-18 14:48 | HMH.EDUTC ---
[facility] [place] Disposition Clinical Impression: Migraine Qualifiers: Migraine type: unspecified Status migrainosus presence: without status migrainosus Intractability: not intractable Qualified Code(s): G43.909 - Migraine, unspecified, not intractable, without status migrainosus Disposition: Home, Self-Care Condition on Discharge: Good Instructions: Migraine -- Adult, DI for Migraine Additional Instructions: Go home lay down and try to sleep off remainder of migraine headache Follow up with your Family Doctor if no improvement or any worsening of symptoms Straight to ER if worse headache of your life Referrals: Amanda Hebert APRN [Primary Care Provider] - Medical Decision Making - Italo Inquiry Pt receiving controlled substance: No Italo was queried for this patient: No Vital Signs: 06/18/21 14:20 06/18/21 15:08 Temperature 98.6 F 98.6 F Temperature Source Oral Pulse Rate 82 Pulse Rate [Right Brachial] 82 Respiratory Rate 18 18 Blood Pressure 141/90 H Blood Pressure [Right Arm] 141/90 H Blood Pressure Mean [Right Arm] 107 Blood Pressure Source [Right Arm] Automatic Cuff Blood Pressure Position [Right Arm] Sitting 02 Sat by Pulse Oximetry 98 Oxygen Delivery Method Room Air Orders (Tests/Meds): ED MEDICATIONS Discontinued Medications Generic Name Dose Route Start Last Admin Trade Name Freq PRN Reason Stop Dose Admin Ketorolac Tromethamine 60 mg 06/18/21 14:54 06/18/21 15:08 Ketorolac 60mg/2ml Vial IM 06/18/21 14:55 60 mg ONCE ONE Administration Promethazine HCl 12.5 mg 06/18/21 14:54 06/18/21 15:08 Promethazine Hcl 25mg/Ml 1ml Vial IM 06/18/21 14:55 12.5 mg ONCE ONE Administration Sodium Chloride 25 ml 06/18/21 14:54 06/18/21 15:08 Sodium Chloride 0.9% 25ml Bag IV 06/18/21 14:55 Not Given ONCE ONE Medical Decision Narrative: medication discussed with pharmacy Patient states that headache feeling much better after medication [facility] [place] HPI - General Stated complaint: migraine Time Seen by Provider: 06/18/21 14:48 Mode of Arrival: Ambulatory Source of Information: Patient Limitations: No Limitations Description of Symptoms (Recalled from Triage Doc. by RN): PATIENT C/O MIGRAINE X 3 DAYS HEENT Symptoms (Recalled from RN notes): Yes Resp Symptoms (Recalled from RN notes): No Skin Symptoms (Recalled from RN notes): No MS Symptoms (Recalled from RN notes): No Functional Status (Recalled from RN notes): WNL - History of Present Illness Provider Complaint: Patient states that she has a history of migraine headaches states that she felt one coming on several days ago and has taken several OTC medications along with her prescription medications and they havent helped States that she sometimes has to come in and get a couple shots to help with it Denies worse headache of her life - Related Data Home Medications Medication Instructions Recorded Confirmed Buprenorphine HCl/Naloxone HCl 2.5 each SL DAILY 01/23/19 05/31/21 [Suboxone 8 mg-2 mg Sl Film] Previous Rx's Medication Instructions Recorded amlodipine 5 mg tablet 5 mg PO DAILY #90 tab 03/14/19 Ondansetron [Zofran 4mg ODT] 4 mg PO Q8HP PRN #20 tab.rapdis 02/24/20 Ibuprofen [Ibuprofen 800mg 800 mg PO Q8HP PRN #30 tab 08/21/20 Tablet] Promethazine HCl [Phenergan 25mg 25 mg PO Q6H PRN #12 tab 08/21/20 tab] desvenlafaxine succinate 50 mg 50 mg PO DAILY #30 tab 05/22/21 tablet,extended release 24 hr hydroxyzine pamoate 25 mg capsule 25 mg PO TID PRN #90 cap 05/22/21 propranolol 10 mg tablet 10 mg PO TID PRN #90 tab 05/22/21 quetiapine 100 mg tablet 100 mg PO QHS #30 tab 05/22/21 vilazodone 40 mg tablet 40 mg PO DAILY #30 tab 05/22/21 buspirone 10 mg tablet 10 mg PO BID #60 tab 05/31/21 cariprazine 4.5 mg capsule 4.5 mg PO DAILY #30 cap 05/31/21 Allergies Allergy/AdvReac Type Severity Reaction Status Date / Time codeine [CODEINE] Allergy Unknown SHORTNESS Verified 05/31/21
[2021-06-18 15:08] VITALS: BP 141/90; PULSE 82; RESP 18; TEMP 37; O2SAT 98
== END 2021-06-18 15:29 | disposition home or self-care (01) ==
PROVIDERS: Emergency Provider Nurse Practitioner; PCP Nurse Practitioner Family
DX: G43.909 Migraine, unspecified, not intractable, without status migrainosus (principal); F17.210 Nicotine dependence, cigarettes, uncomplicated; I10 Essential (primary) hypertension; F41.9 Anxiety disorder, unspecified; F32.A Depression, unspecified
CPT/HCPCS: 96372; 99202; G0463

== ENCOUNTER → 2022-04-24 11:53 | Outpatient (CLI) | payer OTHER, SELFPAY | PROVIDERS: PCP Nurse Practitioner Family; Visit Provider Nurse Practitioner Family | DX: U07.1 COVID-19 (principal); R05.1 Acute cough | CPT/HCPCS: C9803; U0003; U0005 ==

== ENCOUNTER → 2022-07-24 10:09 | Outpatient (CLI) | payer OTHER, SELFPAY ==
--- NOTE | 2022-07-24 10:15 | MM_ITS ---
PROCEDURE INFORMATION: Exam: MG Bilateral Screening 3D Mammography Exam date and time: 07/24/2022 10:10 AM Age: 52 years old Clinical indication: Screening examination TECHNIQUE: Imaging protocol: Bilateral Screening tomosynthesis and 2D mammography including computer-aided detection (CAD) when performed. COMPARISON: No relevant prior studies available. FINDINGS: MAMMOGRAPHY: Breast composition: The breasts are almost entirely fatty. Mass: None. Architectural distortion: None. Calcifications: No suspicious calcifications. Asymmetric density: None. Skin thickening: None. Axillary adenopathy: None. IMPRESSION: No mammographic evidence of malignancy. Annual screening is recommended unless otherwise clinically indicated. ASSESSMENT: BI-RADS Category 1: Negative
== END ==
PROVIDERS: PCP Nurse Practitioner Family; Visit Provider Family Medicine Addiction Medicine
DX: Z12.31 Encounter for screening mammogram for malignant neoplasm of breast (principal)
CPT/HCPCS: 77063; 77067

== ENCOUNTER → 2022-08-14 11:05 | Outpatient (CLI) | payer OTHER, SELFPAY ==
[2022-08-14 15:35] LABS: Alanine Aminotransferase 28 U/L (12-78); Albumin Level 4.4 g/dl (3.5-5.0); Albumin/Globulin Ratio 1.6 (1.1-1.8); Alkaline Phosphatase 199 U/L (38-126); Anion Gap 11.7 mEq/L (5-15); Aspartate Amino Transferase 27 U/L (14-36); Bilirubin,Total 0.7 mg/dl (0.2-1.3); Blood Urea Nitrogen 10 mg/dl (7-17); Calcium 9.4 mg/dl (8.4-10.2); Carbon Dioxide 32 mmol/L (22.0-30.0); Chloride 96 mmol/L (98-107); Chol/HDL Ratio 4.3 (1-3.5); Cholesterol 209 mg/dl (140-200); Estimated Glomerular Filt Rate 65 ml/min (>60); GFR (African American) 79 ML/MIN (>60); Globulin 2.8 g/dL (1.3-3.2); Glucose 101 mg/dl (74-100); HDL Cholesterol 49 mg/dl (40-60); Potassium 4.7 mmoL/L (3.5-5.1); Sodium 135 mmol/L (136-145); Total Protein,Serum 7.2 g/dl (6.3-8.2); Triglycerides 272 mg/dl (30-150); VLDL Cholesterol 54 mg/dL (0-40)
[2022-08-14 15:46] LABS: Direct LDL Cholesterol 39.68 mg/dL (100-129)
[2022-08-14 15:51] LABS: 25-OH Vitamin D, Total 14.5 ng/mL (30-100)
[2022-08-14 16:05] LABS: Basophils # 0.1 K/mm3 (0-0.2); Basophils % 1.6 % (0.1-2.0); Eosinophils # 0.1 K/mm3 (0.0-0.4); Eosinophils % 2.7 % (0.1-12.0); Hematocrit 44.7 % (37.0-47.0); Hemoglobin 14.1 g/dL (12.2-16.2); Lymphocytes # 1.3 K/mm3 (0.7-4.5); Lymphocytes % 28.5 % (10-50); Mean Corpuscular HGB Conc 31.6 g/dL (31.8-35.4); Mean Corpuscular Hemoglobin 31.2 pg (27.0-31.2); Mean Corpuscular Volume 98.6 fl (81-99); Mean Platelet Volume 8.9 fl (7.4-10.4); Monocytes # 0.3 K/mm3 (0.1-1.0); Neutrophils # 2.8 K/mm3 (1.8-7.8); Neutrophils % 61.2 % (37.0-80.0); Platelet Count 520 K/mm3 (142-424); Red Blood Count 4.53 M/mm3 (4.20-5.40); Red Cell Distribution Width 13.6 % (11.5-17.5); Thyroid Stimulating Hormone 0.42 uIU/mL (0.465-4.68); White Blood Count 4.6 K/mm3 (4.8-10.8)
[2022-08-14 16:14] LABS: Hemoglobin A1C 5.3 % (4.0-6.0)
== END ==
PROVIDERS: PCP Nurse Practitioner Family; Visit Provider Nurse Practitioner Family
DX: I10 Essential (primary) hypertension (principal); E66.3 Overweight; R53.83 Other fatigue; E55.9 Vitamin D deficiency, unspecified
CPT/HCPCS: 80053; 80061; 82306; 83036; 84443; 85025

== ENCOUNTER → 2022-08-15 09:05 | Outpatient (CLI) | payer OTHER, SELFPAY ==
--- NOTE | 2022-08-15 09:10 | XR_ITS ---
FINAL REPORT CLINICAL HISTORY: SOA COMPARISON: 07/08/2020 FINDINGS: PA and lateral views of the chest were obtained. The cardiac and mediastinal silhouettes are within normal limits. The lungs are clear. There is no pleural effusion or pneumothorax. No acute osseous abnormality is identified. IMPRESSION: No radiographic evidence of acute cardiac or pulmonary disease. Reviewed, Interpreted and Dictated by Lily Corona MD Transcribed by Pat Benítez Authenticated and [facility]
== END ==
PROVIDERS: PCP Nurse Practitioner Family; Visit Provider Nurse Practitioner Family
DX: R06.02 Shortness of breath (principal)
CPT/HCPCS: 71046

== ENCOUNTER → 2022-09-11 10:02 | Outpatient (CLI) | payer OTHER, SELFPAY | PROVIDERS: PCP Nurse Practitioner Family; Visit Provider Nurse Practitioner Family | DX: R06.09 Other forms of dyspnea (principal) | CPT/HCPCS: 94060; 94618 ==

== ENCOUNTER → 2022-12-04 12:53 | Outpatient (CLI) | payer OTHER, SELFPAY ==
--- NOTE | 2022-12-04 13:38 | CT_ITS ---
FINAL REPORT TECHNIQUE: Thin section axial images were obtained through the lungs using a low-dose technique per lung cancer screening protocol. Reconstruction images were obtained using the axial data. Exam was performed using dose reduction technique. CLINICAL HISTORY: lung cancer screening, PRIOR CHEST CT BUT NOT LUNG SCREENING , 15 CIGARETTES PER DAY , SMOKER FOR 42 YEARS COMPARISON: Prior chest CT 07/08/2020 FINDINGS: CTDLvol: 2.9 DLP: 100.29 Current smoker 35 pack year history Lungs: No acute pulmonary abnormality. There is a 19 mm new right lower lobe nodule not seen on the prior CT of 2020. Bilateral calcified granulomas are present. Lymph nodes: There is a 2.7 cm subcarinal node, more prominent than seen on the prior CT of 2020. Mediastinum: Heart size is normal. Pleura/pericardium: No pleural or pericardial effusion. Other: No acute abnormality in the upper abdomen. IMPRESSION: 19 mm new right lower lobe nodule. 2.7 cm right subcarinal node larger than noted on the prior CT of 2020. Lung RADS: 4B Recommendation: Recommend PET CT scan for further evaluation. Reviewed, Interpreted and Dictated by Lily Corona MD Transcribed by Anny Leary Authenticated and [facility]
== END ==
PROVIDERS: PCP Nurse Practitioner Family; Visit Provider Internal Medicine Pulmonary Disease
DX: Z87.891 Personal history of nicotine dependence (principal); Z12.2 Encounter for screening for malignant neoplasm of respiratory organs; R06.02 Shortness of breath
CPT/HCPCS: 71271; 94060; 94726; 94729

== ENCOUNTER 2023-01-16 11:20 | Day surgery (SDC) | payer OTHER, SELFPAY ==
[2023-01-15 13:37] VITALS: BMI 49.9
--- NOTE | 2023-01-15 13:45 | SUR.PREOP ---
preop phone call complete. 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 Asked for them to bring in a list of meds, and dosages. Verbalized understanding.
[2023-01-16] VITALS (10 sets, daily range): BP systolic 102–143; BP diastolic 65–88; PULSE 90–105; RESP 16–19; TEMP 36.1–43; O2SAT 89–100
[2023-01-16 12:20] LABS: Basophils # 0.1 K/mm3 (0-0.2); Basophils % 1.2 % (0.1-2.0); Eosinophils # 0.2 K/mm3 (0.0-0.4); Eosinophils % 3.2 % (0.1-12.0); Hematocrit 42.9 % (37.0-47.0); Hemoglobin 14.1 g/dL (12.2-16.2); Lymphocytes # 1.7 K/mm3 (0.7-4.5); Lymphocytes % 29.7 % (10-50); Mean Corpuscular HGB Conc 32.8 g/dL (31.8-35.4); Mean Corpuscular Hemoglobin 30.2 pg (27.0-31.2); Mean Corpuscular Volume 91.9 fl (81-99); Monocytes # 0.3 K/mm3 (0.1-1.0); Monocytes % 4.6 % (1.7-9.3); Neutrophils # 3.6 K/mm3 (1.8-7.8); Neutrophils % 61.3 % (37.0-80.0); Platelet Count 182 K/mm3 (142-424); Red Blood Count 4.66 M/mm3 (4.20-5.40); Red Cell Distribution Width 13.3 % (11.5-17.5); White Blood Count 5.8 K/mm3 (4.8-10.8)
[2023-01-16 12:51] LABS: Anion Gap 11.7 mEq/L (5-15); Blood Urea Nitrogen 7 mg/dl (7-17); Carbon Dioxide 30 mmol/L (22.0-30.0); Chloride 102 mmol/L (98-107); Creatinine Clearance Estimated 76 mL/min (50-200); Estimated Glomerular Filt Rate 87 ml/min (>60); GFR (African American) 106 ML/MIN (>60); Glucose 96 mg/dl (74-100); Potassium 3.7 mmoL/L (3.5-5.1); Sodium 140 mmol/L (136-145)
--- NOTE | 2023-01-16 13:04 | P.PNANES_ITS ---
[facility] Disclaimer: The information contained in this section may have been updated after the patient was seen, as this information can be updated by other users. Medical History Asthma Bipolar 1 disorder Bipolar II disorder COPD (chronic obstructive pulmonary disease) COPD mixed type Dyspnea on exertion Encounter for screening for malignant neoplasm of lung Generalized anxiety disorder with panic attacks Hilar lymphadenopathy History of stomach cancer History of uterine cancer Mediastinal lymphadenopathy Smoking greater than 30 pack years Surgical History History of section History of mandibular surgery History of nasal surgery History of surgery on lower extremity History of surgery on upper extremity Family History Other Hypertension Social History Smoking Status: Current every day smoker tobacco type: cigarettes (Kristen claims to have cut back to 4 cigarettes a day.) packs per day: 0 second hand exposure: Yes alcohol intake: never substance use type: denies use, former substance user (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.), crack/cocaine, heroin and IV drugs (she has had the hepatitis and HIV testing; all negative) current occupational status: disabled and other Travel in the last 8 weeks: None number of children: 6 [facility] Anesthesia Checklist Patient Identification Patient Identification: Arm Band Structural Data Admitted From: Home Planned Operative Procedure/s: Bronchoscopy with EBUS Consent for Planned Operative Procedure(s) Verified: Yes Verified Documents: Surgical Consent and History and Physical NPO Status Verified Time NPO: 00:00 Additional verifications Anesthesia Reactions: No Hx Blood Transfusions: Yes Blood Transfusion Reaction: No Airway Assessment Mallampati Score:: Class II C-Spine Mobility Assessed: Yes TMJ Mobility Assessed: Yes Dentition: Edentulous Neurological Assessment Level of Consciousness: Awake and Alert Anesthesia Plan Anesthesia Risk discussed: Yes Anesthesia Plan: Verified ASA Class: III Anesthesia Type: General
--- NOTE | 2023-01-16 13:57 | XR_ITS ---
FINAL REPORT CLINICAL HISTORY: post-op bronch COMPARISON: 08/15/2022 FINDINGS: SINGLE-VIEW CHEST The heart size is normal. The mediastinum is normal. There is an airspace opacity at the right base which was not present on the prior exam, may represent developing pneumonia. There is no pneumothorax. IMPRESSION: Right base opacity, may represent developing pneumonia. Reviewed, Interpreted and Dictated by Rich Harris MD Transcribed by Joselyn Hernandez Authenticated and [facility]
--- NOTE | 2023-01-16 14:00 | EXP.ANES.I ---
[facility] Anesthesia Record Part I Anesthesia Record I Intake, IV Amount: 1,200 Hydration: Adequate Estimated blood loss (mL): 0 Urine output (mL): 0 Blood Products used (#): none Blood Pressure: 102/72 SaO2: 94 Pulse Rate: 102 Airway Patency: Patent Respiratory Rate: 16 Temperature: 98.7 F Patient is:: Drowsy and Stable Stable to PACU at:: 13:55
--- NOTE | 2023-01-16 14:14 | P.PCN_ITS ---
Procedure: Date: 01/16/23 Patient Date of :: 1970 Procedure Performed:: Bronchoscopy airway examination bronchoalveolar lavage endobronchial ultrasound- guided fine-needle aspirate Indications:: Lung nodule and lymphadenopathy Performing Provider:: Lynda Escobar MD Referring Provider:: Dr. Knight Sedation:: General anesthesia Procedure:: Bronchoscopy airway examination bronchoalveolar lavage and endobronchial ultrasound-guided fine-needle aspiration: A clean EBUS bronchoscopy was advanced to the ET tube and lymph node surveillance was performed. Patient noted to have lymphadenopathy at station 4R, station 7 and station 10 R. A total of 5 passes were performed at each lymph node station lymph node sample was sent in CytoLyt for cytopathologic examination. Additional passes were performed to collect specimens 2 separate cultures medium bottles for bacterial fungal AFB stain and cultures. EBUS bronchoscopy retracted a clean DIAGNOSTIC bronchoscopy was advanced through the ET tube and airways were examined up to subsegmental bronchi. Airways appeared grossly normal, no evidence of mucoid secretions, mucous plugging active bleeding/old blood clots noted. Bronchoalveolar lavage was performed in the RIGHT LOWER LOBE with instillation of 60 cc normal saline with return of 15 cc back. BAL fluid was sent for cell count and differential along with cytopathologic examination. Patient tolerated the procedure with no immediate acute complications. We will follow the patient in pulmonary clinic in 7 to 10 days. Findings:: Please see the procedure notes Recommendations:: Follow Post operative bronchoscope instructions F/U Pulmonary clinic n 5-7 days Complications:: No acute immediate complications Estimated blood obtained (mL): 10
--- NOTE | 2023-01-17 15:09 | EXP.ANES.II ---
[facility] Anesthesia Record Part II Anesthesia Record Part II Discharge Time: 14:25 Destination: Surgical Day Care (OP Surgery) PACU nurse assessment reviewed?: Yes Patient Condition:: Good Anesthesia Complications:: None Swallowing reflex intact?: Yes Airway Patency: Patent Cyanosis?: No Blood Pressure: 140/88 SaO2: 95 Respiratory Rate: 19 Pulse Rate: 100 Temperature: 97 F Mental Status: Alert & Oriented Pain level:: 0 Nausea and/or vomitting:: None Intake, IV Amount: 0 Hydration: Adequate
[2023-01-17 15:11] VITALS: BP 140/88; PULSE 100; RESP 19; TEMP 36.1; O2SAT 95
== END 2023-01-16 14:50 | disposition home or self-care (01) ==
PROVIDERS: PCP Nurse Practitioner Family; Visit Provider Internal Medicine Pulmonary Disease
PROC: (CPT 31624; principal; 2023-01-16 12:30)
DX: R91.1 Solitary pulmonary nodule (principal); R59.1 Generalized enlarged lymph nodes; J44.9 Chronic obstructive pulmonary disease, unspecified; F17.210 Nicotine dependence, cigarettes, uncomplicated
CPT/HCPCS: 31624; 31629; 71045; 80048; 85025; 87070; 87077; 87102; 87116; 87186; 87205; 87206; 89051; J2405

== ENCOUNTER → 2023-03-11 13:00 | Outpatient (CLI) | payer OTHER, SELFPAY ==
[2023-03-11 13:58] VITALS: BMI 50.5
--- NOTE | 2023-03-11 13:58 | XR_ITS ---
FINAL REPORT CLINICAL HISTORY: PICC line placement COMPARISON: 01/16/2023 FINDINGS: SINGLE-VIEW CHEST The heart size is normal. The mediastinum is normal. The lungs are clear. Left PICC line is not well visualized but probably terminates at the left brachiocephalic vein. There is no pneumothorax. IMPRESSION: Left PICC line as above. Reviewed, Interpreted and Dictated by Timothy Garcia III, MD Transcribed by Joselyn Hernandez Authenticated and [facility]
[2023-03-11 15:49] LABS: Basophils % 0.8 % (0.1-2.0); Eosinophils % 0.9 % (0.1-12.0); Hematocrit 41.7 % (37.0-47.0); Hemoglobin 14.3 g/dL (12.2-16.2); Lymphocytes # 0.8 K/mm3 (0.7-4.5); Lymphocytes % 18.5 % (10-50); Mean Corpuscular HGB Conc 34.4 g/dL (31.8-35.4); Mean Corpuscular Hemoglobin 31.8 pg (27.0-31.2); Mean Corpuscular Volume 92.5 fl (81-99); Mean Platelet Volume 8.2 fl (7.4-10.4); Monocytes # 0.1 K/mm3 (0.1-1.0); Monocytes % 2.1 % (1.7-9.3); Neutrophils # 3.5 K/mm3 (1.8-7.8); Neutrophils % 77.7 % (37.0-80.0); Platelet Count 195 K/mm3 (142-424); Red Blood Count 4.51 M/mm3 (4.20-5.40); Red Cell Distribution Width 13.8 % (11.5-17.5); White Blood Count 4.5 K/mm3 (4.8-10.8)
--- NOTE | 2023-03-11 16:05 | XR_ITS ---
PROCEDURE INFORMATION: Exam: XR Chest Exam date and time: 03/11/2023 4:04 PM Age: 52 years old Clinical indication: Device placement; Picc; Additional info: Picc line placement TECHNIQUE: Imaging protocol: Radiologic exam of the chest. Views: 1 view. COMPARISON: CR XR CHEST PORTABLE PICC PLAC 03/11/2023 1:59 PM FINDINGS: Tubes, catheters and devices: There is a left PICC line with its tip terminating in the lower superior vena cava. Lungs: No evidence of pneumonia or interstitial edema. Pleural spaces: Unremarkable. No pleural effusion. No pneumothorax. Heart/Mediastinum: Heart size is at the upper limits of normality. Bones/joints: Unremarkable. IMPRESSION: 1. There is a left PICC line with its tip terminating in the lower superior vena cava. 2. No evidence of pneumonia or interstitial edema.
[2023-03-11 16:06] LABS: Alanine Aminotransferase 34 U/L (12-78); Albumin Level 4.6 g/dl (3.5-5.0); Albumin/Globulin Ratio 1.3 (1.1-1.8); Alkaline Phosphatase 117 U/L (38-126); Anion Gap 15.4 mEq/L (5-15); Aspartate Amino Transferase 42 U/L (14-36); Bilirubin,Total 0.4 mg/dl (0.2-1.3); Blood Urea Nitrogen 9 mg/dl (7-17); Calcium 9.7 mg/dl (8.4-10.2); Carbon Dioxide 29 mmol/L (22.0-30.0); Chloride 100 mmol/L (98-107); Creatinine Clearance Estimated 76 mL/min (50-200); Estimated Glomerular Filt Rate 87 ml/min (>60); GFR (African American) 106 ML/MIN (>60); Globulin 3.5 g/dL (1.3-3.2); Glucose 119 mg/dl (74-100); Potassium 4.4 mmoL/L (3.5-5.1); Sodium 140 mmol/L (136-145); Total Protein,Serum 8.1 g/dl (6.3-8.2)
--- NOTE | 2023-03-11 16:14 | PC.NURSE ---
CHEST XRAY READ AND TIP OF PICC IS AT THE BRACHIALCEPHALIC VEIN, NEW PICC LINE INSERTED AWAITING CHEST X RAY RESULTS.
[2023-03-11 16:36] LABS: Thyroid Stimulating Hormone 0.26 uIU/mL (0.465-4.68)
--- NOTE | 2023-03-11 17:05 | PC.NURSE ---
Xray confirmed and picc placement is good. Pt went home and will return tomorrow for chemo.
== END ==
PROVIDERS: PCP Family Medicine; Visit Provider Internal Medicine Medical Oncology
DX: C34.01 Malignant neoplasm of right main bronchus (principal); Z45.2 Encounter for adjustment and management of vascular access device
CPT/HCPCS: 36569; 71045; 80053; 82533; 84443; 85025; C1751

== ENCOUNTER 2023-03-12 08:05 | Outpatient (CLI) | payer OTHER, SELFPAY ==
[2023-03-12] VITALS (34 sets, daily range): BP systolic 97–127; BP diastolic 63–83; PULSE 79–98; RESP 15–18; TEMP 36.8–37.1; O2SAT 93–95; BMI 50.5
[2023-03-12 08:55] LABS: Magnesium 1.4 mg/dl (1.6-2.3)
--- NOTE | 2023-03-12 10:29 | PC.NURSE ---
0925- PREMEDICATED WITH ORDERED MEDS AT THIS TIME. REMAINING EMEND TRIPAK GIVEN TO PT AND INSTRUCTED TO TAKE APREPITANT 80MG PO ON DAYS 2 AND 3 AT HOME.
[2023-03-13 14:34] LABS: Adrenocorticotropic Hormone <1.5 pg/mL (7.2-63.3)
[2023-03-18 13:57] LABS: Magnesium 1.6 mg/dl (1.6-2.3)
== END 2023-03-12 17:40 | disposition home or self-care (01) ==
LOC: INF 08:07
PROVIDERS: PCP Family Medicine; Visit Provider Internal Medicine Medical Oncology
DX: C34.01 Malignant neoplasm of right main bronchus (principal); Z51.11 Encounter for antineoplastic chemotherapy
CPT/HCPCS: 82024; 83735; 96411; 96413; 96415; 96417; J2469; J9060; J9299; J9305

== ENCOUNTER 2023-03-17 18:58 | Emergency (ER) | payer OTHER, SELFPAY ==
[2023-03-17 19:00] VITALS: BP 115/82; PULSE 86; RESP 20; TEMP 36.9; O2SAT 94; BMI 32.2
--- NOTE | 2023-03-17 19:39 | PC.NURSE ---
Flushed patient picc line with a 10 ml normal saline flush and met no resistance and had blood return, will await ER Md ocasio for further instructions
--- NOTE | 2023-03-17 19:46 | HMH.EDGENADL ---
Discharge Plan Disposition Patient Disposition: Home, Self-Care Prescriptions Prescriptions: No Action clonazepam 1 mg tablet 1 mg PO TID Qty: 90 2RF hydrochlorothiazide 25 mg tablet 25 mg PO DAILY oxcarbazepine 600 mg tablet 600 mg PO BID vilazodone 40 mg tablet 40 mg PO DAILY Rx Instructions: must administer with a meal/food amlodipine 10 mg tablet 10 mg PO DAILY prazosin 5 mg capsule 5 mg PO HS hydroxyzine pamoate 50 mg capsule 50 mg PO DAILY folic acid 1 mg tablet 1 mg PO DAILY dexamethasone 4 mg tablet 4 mg PO BID Rx Instructions: TAKE DAY BEFORE CHEMO INFUSION THEN DAYS 2 AND 3 oxycodone-acetaminophen 5-325 mg tablet 1 tab PO Q6HP PRN (Reason: Pain) cyclobenzaprine 10 mg tablet 10 mg PO TIDP PRN (Reason: MUSCLE RELAXER) buspirone 10 mg tablet 20 mg PO BID Dulera 200-5 mcg/actuation HFA aerosol inhaler 2 puff inhalation BID Vraylar 4.5 mg capsule 4.5 mg PO DAILY Spiriva Respimat 1.25 mcg/actuation mist 2 puff inhalation DAILY Nurtec ODT 75 mg tablet,disintegrating 75 mg PO Q OTHER DAY Rx Instructions: Unable to take Triptans cholecalciferol (vitamin D3) 1,250 mcg (50,000 unit) capsule 50,000 unit PO WEEKLY cholecalciferol (vitamin D3) [Vitamin D3] 50 mcg (2,000 unit) capsule 2,000 unit PO DAILY Referrals Follow up/Referrals: Brodie Mckeon MD [Primary Care Provider] - See instructions Clinical Impressions Clinical Impression: Occluded PICC line Discharge ED Provider: Sera Lazo General Adult HPI General Chief complaint: Recheck/Abnormal Lab/Rx Stated complaint: sent by 25, check pic line Time Seen by Provider: 03/17/23 19:39 Mode of Arrival: Ambulatory Source of Information: Patient Limitations: No Limitations Description of Symptoms (Recalled from ER Triage Doc. by RN): Pt had chemo on through her picc line and then today slept on that same side and woke up with it hurting, called the stonehand nurse and they told her to come up here to get it checked out. pt sees Dr. Grace/Neil. pt had issues with picc line placement the first time and had it placed agin for a second time this past thursday in infusion here at this facility before getting her first round of chemo on History of Present Illness HPI narrative: Patient is a 52-year-old female with a history of lung cancer recently had a PICC line placed in her left upper extremity states she slept on it abnormally and had some discomfort in presents to the emergency department with concerns that it was occluded. No erythema no fevers no shortness of breath no upper extremity swelling. Related Data Home Medications Medication Instructions Recorded Confirmed hydrochlorothiazide 25 mg tablet 25 mg PO DAILY High Blood Pressure 08/14/22 03/12/23 oxcarbazepine 600 mg tablet 600 mg PO BID . 08/14/22 03/12/23 vilazodone 40 mg tablet 40 mg PO DAILY Insomnia 08/14/22 03/12/23 buspirone 10 mg tablet 20 mg PO BID Anxiety 01/16/23 03/12/23 cariprazine 4.5 mg capsule 4.5 mg PO DAILY bipolar 01/16/23 03/12/23 (Mihir) cyclobenzaprine 10 mg tablet 10 mg PO TIDP PRN MUSCLE RELAXER 01/16/23 03/12/23 mometasone-formoterol HFA 200 2 puff inhalation BID Copd 01/16/23 03/12/23 mcg-5 mcg/actuation aerosol inhaler (Dulera) rimegepant 75 mg disintegrating 75 mg PO Q OTHER DAY migraines 01/16/23 03/12/23 tablet (Nurtec ODT) tiotropium bromide 1.25 2 puff inhalation DAILY Asthma 01/16/23 03/12/23 mcg/actuation mist for inhalation (Spiriva Respimat) amlodipine 10 mg tablet 10 mg PO DAILY 01/29/23 03/12/23 hydroxyzine pamoate 50 mg capsule 50 mg PO DAILY 01/29/23 03/12/23 prazosin 5 mg capsule 5 mg PO HS 01/29/23 03/12/23 dexamethasone 4 mg tablet 4 mg PO BID 03/06/23 03/12/23 folic acid 1 mg tablet 1 mg PO DAILY 03/06/23 03/12/23 oxycodone-acetaminophen 5 mg-325 1 tab PO Q6HP PRN Pain 03/06/2302/16
[2023-03-17 19:49] VITALS: BP 122/76; PULSE 70; RESP 20; TEMP 36.6; O2SAT 95
== END 2023-03-17 19:51 | disposition home or self-care (01) ==
PROVIDERS: Emergency Provider Student in an Organized Health Care Education/Training Program; PCP Family Medicine
DX: T82.898A Other specified complication of vascular prosthetic devices, implants and grafts, initial encounter (principal); F17.210 Nicotine dependence, cigarettes, uncomplicated; C34.90 Malignant neoplasm of unspecified part of unspecified bronchus or lung; J44.9 Chronic obstructive pulmonary disease, unspecified; F41.1 Generalized anxiety disorder; Z92.21 Personal history of antineoplastic chemotherapy
CPT/HCPCS: 99284

== ENCOUNTER 2023-03-18 12:42 | Outpatient (CLI) | payer OTHER, SELFPAY ==
[2023-03-18 12:50] VITALS: BMI 50.5
[2023-03-18 13:20] LABS: Basophils % 0.3 % (0.1-2.0); Eosinophils # 0.1 K/mm3 (0.0-0.4); Hematocrit 39.5 % (37.0-47.0); Hemoglobin 13.6 g/dL (12.2-16.2); Lymphocytes # 1.1 K/mm3 (0.7-4.5); Lymphocytes % 37.9 % (10-50); Mean Corpuscular HGB Conc 34.5 g/dL (31.8-35.4); Mean Corpuscular Hemoglobin 31.7 pg (27.0-31.2); Mean Corpuscular Volume 91.8 fl (81-99); Mean Platelet Volume 8.2 fl (7.4-10.4); Monocytes # 0.1 K/mm3 (0.1-1.0); Monocytes % 1.8 % (1.7-9.3); Neutrophils # 1.7 K/mm3 (1.8-7.8); Neutrophils % 57.9 % (37.0-80.0); Platelet Count 156 K/mm3 (142-424); Red Cell Distribution Width 13.6 % (11.5-17.5)
[2023-03-18 13:34] LABS: Alanine Aminotransferase 29 U/L (12-78); Albumin Level 4.2 g/dl (3.5-5.0); Albumin/Globulin Ratio 1.4 (1.1-1.8); Alkaline Phosphatase 100 U/L (38-126); Anion Gap 8.4 mEq/L (5-15); Aspartate Amino Transferase 29 U/L (14-36); Bilirubin,Total 0.4 mg/dl (0.2-1.3); Blood Urea Nitrogen 22 mg/dl (7-17); Calcium 9.4 mg/dl (8.4-10.2); Carbon Dioxide 36 mmol/L (22.0-30.0); Chloride 98 mmol/L (98-107); Creatinine Clearance Estimated 53 mL/min (50-200); Estimated Glomerular Filt Rate 58 ml/min (>60); GFR (African American) 70 ML/MIN (>60); Globulin 3.1 g/dL (1.3-3.2); Glucose 122 mg/dl (74-100); Potassium 3.4 mmoL/L (3.5-5.1); Sodium 139 mmol/L (136-145); Total Protein,Serum 7.3 g/dl (6.3-8.2)
== END 2023-03-18 13:10 | disposition home or self-care (01) ==
LOC: INF 12:42
PROVIDERS: PCP Family Medicine; Visit Provider Internal Medicine Medical Oncology
DX: Z45.2 Encounter for adjustment and management of vascular access device (principal); C34.01 Malignant neoplasm of right main bronchus
CPT/HCPCS: 36592; 80053; 85025

== ENCOUNTER 2023-03-27 11:29 | Outpatient (CLI) | payer OTHER, SELFPAY | END 2023-03-27 11:35 | disposition home or self-care (01) | LOC: INF 11:29 | PROVIDERS: Visit Provider Internal Medicine Medical Oncology | DX: Z45.2 Encounter for adjustment and management of vascular access device (principal); C34.01 Malignant neoplasm of right main bronchus | CPT/HCPCS: 96523 ==

== ENCOUNTER 2023-04-02 08:22 | Outpatient (CLI) | payer OTHER, SELFPAY ==
[2023-04-02] VITALS (17 sets, daily range): BP systolic 123–157; BP diastolic 79–101; PULSE 84–99; RESP 19–20; TEMP 36.8; O2SAT 95; BMI 49.0
[2023-04-02 08:38] LABS: Basophils % 0.5 % (0.1-2.0); Eosinophils % 0.3 % (0.1-12.0); Hematocrit 34.1 % (37.0-47.0); Lymphocytes # 1.1 K/mm3 (0.7-4.5); Lymphocytes % 36.7 % (10-50); Mean Corpuscular Hemoglobin 31.7 pg (27.0-31.2); Mean Corpuscular Volume 90.4 fl (81-99); Mean Platelet Volume 8.7 fl (7.4-10.4); Monocytes # 0.1 K/mm3 (0.1-1.0); Monocytes % 3.7 % (1.7-9.3); Neutrophils # 1.7 K/mm3 (1.8-7.8); Neutrophils % 58.7 % (37.0-80.0); Platelet Count 394 K/mm3 (142-424); Red Blood Count 3.78 M/mm3 (4.20-5.40); Red Cell Distribution Width 14.6 % (11.5-17.5); White Blood Count 2.9 K/mm3 (4.8-10.8)
[2023-04-02 08:46] LABS: Chloride 102 mmol/L (98-107); Sodium 141 mmol/L (136-145)
[2023-04-02 08:47] LABS: Potassium 3.7 mmoL/L (3.5-5.1)
[2023-04-02 08:49] LABS: Alanine Aminotransferase 58 U/L (12-78); Albumin Level 4.2 g/dl (3.5-5.0); Albumin/Globulin Ratio 1.4 (1.1-1.8); Alkaline Phosphatase 139 U/L (38-126); Anion Gap 10.7 mEq/L (5-15); Aspartate Amino Transferase 51 U/L (14-36); Blood Urea Nitrogen 12 mg/dl (7-17); Calcium 8.8 mg/dl (8.4-10.2); Carbon Dioxide 32 mmol/L (22.0-30.0); Creatinine Clearance Estimated 67 mL/min (50-200); Estimated Glomerular Filt Rate 75 ml/min (>60); GFR (African American) 90 ML/MIN (>60); Glucose 172 mg/dl (74-100); Total Protein,Serum 7.2 g/dl (6.3-8.2)
[2023-04-02 08:50] LABS: Magnesium 1.3 mg/dl (1.6-2.3)
[2023-04-02 08:51] LABS: Bilirubin,Total 0.1 mg/dl (0.2-1.3)
--- NOTE | 2023-04-02 15:10 | PC.NURSE ---
1510-PT STATES CONDITION IS BETTER AND THE NAUSEA HAS SUBSIDED;BASED ON SYMPTOMS RN DECIDED PT DID NOT NEED ATIVAN.
== END 2023-04-02 15:35 | disposition home or self-care (01) ==
LOC: INF 08:23
PROVIDERS: PCP Family Medicine; Visit Provider Internal Medicine Medical Oncology
DX: Z51.11 Encounter for antineoplastic chemotherapy (principal); C34.91 Malignant neoplasm of unspecified part of right bronchus or lung
CPT/HCPCS: 80053; 83735; 85025; 96375; 96411; 96413; 96415; 96417; J2469; J9060; J9299; J9305

== ENCOUNTER 2023-04-07 13:18 | Outpatient (CLI) | payer OTHER, SELFPAY ==
[2023-04-07 13:38] VITALS: BP 139/69; PULSE 88; RESP 16; TEMP 36.9; O2SAT 95
[2023-04-07 14:38] VITALS: BP 145/82; PULSE 79; RESP 16; TEMP 36.9; O2SAT 96
== END 2023-04-07 14:50 | disposition home or self-care (01) ==
LOC: INF 13:19
PROVIDERS: PCP Family Medicine; Visit Provider Internal Medicine Medical Oncology
DX: C34.31 Malignant neoplasm of lower lobe, right bronchus or lung (principal); E86.0 Dehydration
CPT/HCPCS: 96360; 96375

== ENCOUNTER 2023-04-13 13:01 | Emergency (ER) | payer OTHER, SELFPAY ==
[2023-04-13 13:02] VITALS: BP 108/77; PULSE 122; RESP 16; TEMP 36.9; O2SAT 95; BMI 49.9
[2023-04-13 13:31] VITALS: BP 123/87; PULSE 117; O2SAT 95
[2023-04-13 14:00] VITALS: BP 118/87; PULSE 117; O2SAT 96
[2023-04-13 14:30] VITALS: BP 105/80; PULSE 112; O2SAT 94
[2023-04-13 14:35] LABS: Alanine Aminotransferase 47 U/L (12-78); Albumin Level 3.7 g/dl (3.5-5.0); Alkaline Phosphatase 111 U/L (38-126); Anion Gap 24.3 mEq/L (5-15); Aspartate Amino Transferase 50 U/L (14-36); Bilirubin,Total 3.7 mg/dl (0.2-1.3); Blood Urea Nitrogen 51 mg/dl (7-17); Calcium 6.8 mg/dl (8.4-10.2); Carbon Dioxide 17 mmol/L (22.0-30.0); Chloride 93 mmol/L (98-107); Creatinine Clearance Estimated 12 mL/min (50-200); Estimated Glomerular Filt Rate 11 ml/min (>60); GFR (African American) 13 ML/MIN (>60); Globulin 3.7 g/dL (1.3-3.2); Glucose 174 mg/dl (74-100); Potassium 3.3 mmoL/L (3.5-5.1); Sodium 131 mmol/L (136-145); Total Protein,Serum 7.4 g/dl (6.3-8.2)
[2023-04-13 14:57] LABS: Basophils % 2.4 % (0.1-2.0); Eosinophils % 1.5 % (0.1-12.0); Hematocrit 30.1 % (37.0-47.0); Hemoglobin 10.5 g/dL (12.2-16.2); Lymphocytes # 0.2 K/mm3 (0.7-4.5); Lymphocytes % 77.4 % (10-50); Mean Corpuscular HGB Conc 34.9 g/dL (31.8-35.4); Mean Corpuscular Hemoglobin 31.4 pg (27.0-31.2); Mean Corpuscular Volume 90.1 fl (81-99); Mean Platelet Volume 9.4 fl (7.4-10.4); Monocytes % 3.4 % (1.7-9.3); Neutrophils # 0.1 K/mm3 (1.8-7.8); Neutrophils % 15.3 % (37.0-80.0); Red Blood Count 3.34 M/mm3 (4.20-5.40); Red Cell Distribution Width 14.3 % (11.5-17.5)
[2023-04-13 14:59] LABS: Platelet Count 3 K/mm3 (142-424); White Blood Count 0.3 K/mm3 (4.8-10.8)
[2023-04-13 15:00] VITALS: BP 113/76; PULSE 112; O2SAT 94
[2023-04-13 15:00] LABS: MANUAL DIFFERENTIAL MANUAL DIFFERENTIAL (MANUAL DIFF)
[2023-04-13 15:21] LABS: Lymphocytes % 96 % (10-50); Neutrophils % 4 % (42-76); Total Cells Counted 25
[2023-04-13 15:22] LABS: RBC Morphology Normal
[2023-04-13 15:23] LABS: Platelet Estimate Marked Decrease
--- NOTE | 2023-04-13 15:44 | PC.NURSE ---
DR ABRAMS PAGED AT THIS TIME
--- NOTE | 2023-04-13 15:50 | PC.NURSE ---
DR GABRIEL SPEAKING WITH DR ABRAMS
[2023-04-13 16:09] LABS: Lactate Dehydrogenase 281 U/L (313-618)
[2023-04-13 16:10] LABS: Phosphorous 4.9 mg/dl (2.5-4.5)
[2023-04-13 16:21] LABS: Magnesium 0.7 mg/dl (1.6-2.3)
--- NOTE | 2023-04-13 16:25 | HMH.EDGENADL ---
Discharge Plan Disposition Patient Disposition: Xfer Short-Term Hosp Chief Complaint: Skin/Abscess/Foreign Body Prescriptions Prescriptions: No Action clonazepam 1 mg tablet 1 mg PO TID Qty: 90 2RF prochlorperazine maleate 10 mg tablet PO prednisolone acetate 1 % drops,suspension ophthalmic (eye) hydrochlorothiazide 25 mg tablet 25 mg PO DAILY oxcarbazepine 600 mg tablet 600 mg PO BID vilazodone 40 mg tablet 40 mg PO DAILY Rx Instructions: must administer with a meal/food amlodipine 10 mg tablet 10 mg PO DAILY prazosin 5 mg capsule 5 mg PO HS hydroxyzine pamoate 50 mg capsule 50 mg PO DAILY folic acid 1 mg tablet 1 mg PO DAILY dexamethasone 4 mg tablet 4 mg PO BID Rx Instructions: TAKE DAY BEFORE CHEMO INFUSION THEN DAYS 2 AND 3 oxycodone-acetaminophen 5-325 mg tablet 1 tab PO Q6HP PRN (Reason: Pain) cholecalciferol (vitamin D3) 1,250 mcg (50,000 unit) capsule See Rx Instructions .ROUTE .COMPLEX Qty: 4 2RF Dose Instruction: TAKE 1 CAPSULE BY MOUTH ONCE WEEKLY Rx Instructions: TAKE 1 CAPSULE BY MOUTH ONCE WEEKLY cholecalciferol (vitamin D3) [Vitamin D3] 50 mcg (2,000 unit) capsule See Rx Instructions .ROUTE .COMPLEX Qty: 30 0RF Dose Instruction: TAKE 1 CAPSULE BY MOUTH ONCE A DAY Rx Instructions: TAKE 1 CAPSULE BY MOUTH ONCE A DAY cyclobenzaprine 10 mg tablet 10 mg PO TIDP PRN (Reason: MUSCLE RELAXER) buspirone 10 mg tablet 20 mg PO BID Dulera 200-5 mcg/actuation HFA aerosol inhaler 2 puff inhalation BID Vraylar 4.5 mg capsule 4.5 mg PO DAILY Spiriva Respimat 1.25 mcg/actuation mist 2 puff inhalation DAILY Nurtec ODT 75 mg tablet,disintegrating 75 mg PO Q OTHER DAY Rx Instructions: Unable to take Triptans Referrals Follow up/Referrals: Brodie Mckeon MD [Primary Care Provider] - See instructions Clinical Impressions Clinical Impression: Acquired pancytopenia, ZHANNA (acute kidney injury) Instructions Patient Instructions: DI for Skin Abscess Discharge ED Provider: Brad Chavis General Adult HPI <Michi Cunningham MD - Last Filed: 04/13/23 17:02> General Chief complaint: Skin/Abscess/Foreign Body Stated complaint: rash, on chemo Time Seen by Provider: 04/13/23 13:02 Mode of Arrival: EMS Source of Information: Patient Limitations: No Limitations Description of Symptoms (Recalled from ER Triage Doc. by RN): PT WITH RED, PRURITIC RASH THAT STARTED ABOUT 3 DAYS AGO, PT HAD PREVIOUS EPISODE AFTER CHEMOTHERAPY. RASH WORSE ON BILATERAL ARMS, SCATTERED ALL OVER BODY. PT DENIES SHORTNESS OF BREATH History of Present Illness HPI narrative: Mirella Latif presents with a chief complaint of rash, which started three days ago and has since spread all over her body. This occurred after her last chemotherapy treatment on the of this month. She mentions feeling better after receiving medication during her last visit, and the rash is her only complaint at this time. The patient has a history of vomiting during chemotherapy sessions and received Zofran for vomiting during her last episode. She received 50 mg of Benadryl and 125 of solumedrol prior to arrival. Mirella denies any gastrointestinal issues or shortness of breath. Mirella has been undergoing chemotherapy for cancer and receives treatments at this facility. No new medications have been introduced recently. Related Data Home Medications Medication Instructions Recorded Confirmed hydrochlorothiazide 25 mg tablet 25 mg PO DAILY High Blood Pressure 08/14/22 04/02/23 oxcarbazepine 600 mg tablet 600 mg PO BID . 08/14/22 04/02/23 vilazodone 40 mg tablet 40 mg PO DAILY Insomnia 08/14/22 04/07/23 buspirone 10 mg tablet 20 mg PO BID Anxiety 01/16/23 04/02/23 cariprazine 4.5 mg capsule 4.5 mg PO DAILY bipolar 01/16/23 04/02/23 (Mihir) cyclobenzaprine 10 mg tablet 10 mg PO T
--- NOTE | 2023-04-13 16:27 | XR_ITS ---
PROCEDURE INFORMATION: Exam: XR Chest Exam date and time: 04/13/2023 4:51 PM Age: 52 years old Clinical indication: Other: Pneumonia TECHNIQUE: Imaging protocol: Radiologic exam of the chest. Views: 1 view. COMPARISON: CR XR CHEST PORTABLE PICC PLAC 03/11/2023 4:04 PM FINDINGS: Tubes, catheters and devices: Interval retraction of the left PICC catheter tip now projects over the innominate confluence. Lungs: No evidence of acute pulmonary disease or infiltrates; lung zuniga appear clear. Pleural spaces: No evidence of pleural effusion, pneumothorax, or pleural thickening in the visualized pleural spaces. Heart/Mediastinum: No evidence of mediastinal widening or cardiac silhouette enlargement; the mediastinum and heart appear within normal limits for contour and size. Bones/joints: No evidence of acute osseous abnormalities within the visualized portions of the thoracic spine and ribs. Osseous structures appear appropriate for patient age. IMPRESSION: 1. Interval retraction of the left PICC catheter tip now projects over the innominate confluence. 2. No dense parenchymal consolidation, pleural effusion, or pneumothorax.
[2023-04-13 16:29] LABS: Free T4 (Free Thyroxine) 1.26 ng/dl (0.78-2.19); Procalcitonin 64.1 ng/mL (0.0-2.0)
--- NOTE | 2023-04-13 16:29 | PC.NURSE ---
at bedside updating patient and family on poc. rounded on patient. call light w/i reach.
[2023-04-13 16:30] LABS: INR 3.19 (0.9-1.1); Prothrombin Time 31.9 seconds (10.1-12.5)
[2023-04-13 16:36] LABS: C-Reactive Protein 411.9 mg/L (0-4); Fibrinogen 860 mg/dL (229.9-363.5)
--- NOTE | 2023-04-13 16:37 | PC.NURSE ---
placed call to [facility] for transfer there is a wait list.
--- NOTE | 2023-04-13 16:37 | PC.NURSE ---
placed call to [facility] for transfer, hospitalist to call back.
[2023-04-13 16:42] LABS: Thyroid Stimulating Hormone 0.73 uIU/mL (0.465-4.68)
--- NOTE | 2023-04-13 18:04 | PC.NURSE ---
REPORT CALLED TO NETTIE YANES AT [facility]
[2023-04-13 19:00] VITALS: BP 121/74; PULSE 109; RESP 18; TEMP 36.7; O2SAT 97
== END 2023-04-13 19:00 | disposition short-term general hospital (02) ==
PROVIDERS: Emergency Medicine; Emergency Provider Emergency Medicine; PCP Family Medicine
DX: D61.810 Antineoplastic chemotherapy induced pancytopenia (principal); L27.0 Generalized skin eruption due to drugs and medicaments taken internally; N17.9 Acute kidney failure, unspecified; R79.82 Elevated C-reactive protein (CRP); R74.02 Elevation of levels of lactic acid dehydrogenase [LDH]; E87.20 Acidosis, unspecified; R79.1 Abnormal coagulation profile; E87.1 Hypo-osmolality and hyponatremia; E87.6 Hypokalemia; E83.42 Hypomagnesemia
CPT/HCPCS: 36415; 71045; 80053; 83615; 83735; 84100; 84145; 84439; 84443; 85007; 85025; 85384; 85610; 86140; 87040; 96361; 96365; 96366; 96367; 96375; 99291; J2405; J3475